=== PATIENT | female | born 1945 | race Caucasian/White ===

== ENCOUNTER 2020-04-11 12:22 | Emergency (ER) | payer MEDICARE, OTHER ==
[~2020-04-11] VITALS: Ht 157.5 cm; Wt 66.7 kg
[2020-04-11 12:24] VITALS: BP 150/88
--- NOTE | 2020-04-11 12:47 | NUR ---
report to reginaldo tariq
--- NOTE | 2020-04-11 12:50 | NUR ---
report received from taz tariq.
--- NOTE | 2020-04-11 13:08 | NUR ---
edmd at bedside to evaluate at this time.
--- NOTE | 2020-04-11 13:34 | NUR ---
Patient given discharge instructions and they have confirmed that they understand the instructions. Patient ambulatory with steady gait.
== END 2020-04-11 13:35 | disposition home or self-care (01) ==
LOC: ED 13:00
DX: S16.1XXA Strain of muscle, fascia and tendon at neck level, initial encounter (principal); R53.1 Weakness; R53.83 Other fatigue; X58.XXXA Exposure to other specified factors, initial encounter; Y93.89 Activity, other specified; Y92.89 Other specified places as the place of occurrence of the external cause; Y99.8 Other external cause status
CPT/HCPCS: 99283